=== PATIENT | male | born 2000 | race Caucasian/White ===

== ENCOUNTER → 2020-11-14 | Emergency (ER) | payer SELFPAY ==
[~2020-11-14] VITALS: Ht 177.8 cm; Wt 86.2 kg
[2020-11-14 20:54] VITALS: BP 153/80
--- NOTE | 2020-11-14 21:00 | NUR ---
Pt bibra and lapd c/o depression. Pt aaox4 breathing evenly and unlabored. Pt denies SI or HI. Pt attached to monitor and pox. Pt skin warm and dry. Pt given blanket and call light within reach.
--- NOTE | 2020-11-14 21:22 | NUR ---
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
== END | disposition home or self-care (01) ==
LOC: ER 20:49
DX: F32.9 Major depressive disorder, single episode, unspecified (principal)

== ENCOUNTER 2021-03-16 16:37 | Emergency (ER) | payer MEDICAID ==
[~2021-03-16] VITALS: Ht 170.2 cm; Wt 90.7 kg
[2021-03-16 17:02] VITALS: BP 156/76
--- NOTE | 2021-03-16 17:03 | NUR ---
[id number] HOME CALLED 911 C/O ANXIETY S/P ARGUMENT W/ MOTHER. DENIES SI/HI. IN ROOM AIR AIR AND DENIES SOB. RESPIRATION REGULAR AND UNLABORED. DENIES PAIN. WILL CONTINUE TO MONITOR THE PATIENT.
--- NOTE | 2021-03-16 17:22 | NUR ---
The patient is alert and oriented x4. Denies pain. In room air and denies SOB. Respiration regular and unlabored. Denies SI/HI. Patient discharged to home in stable condition. Written and verbal after care instructions given. Patient verbalizes understanding of instruction.
== END 2021-03-16 17:23 | disposition home or self-care (01) ==
LOC: ER 17:09
DX: F41.9 Anxiety disorder, unspecified (principal); F32.9 Major depressive disorder, single episode, unspecified

== ENCOUNTER 2022-08-14 14:19 | Emergency (ER) | payer MEDICAID ==
[~2022-08-14] VITALS: Ht 185.4 cm; Wt 111.1 kg
[2022-08-14 15:16] LABS: BASOPHILS # (AUTO) 0.1 K/uL (0.0-0.2); BASOPHILS % (AUTO) 0.8 % (0.0-2.0); EOSINOPHILS % (AUTO) 1.5 % (0.0-6.0); HEMATOCRIT 44 % (39-51); HEMOGLOBIN 14.6 g/dL (13.5-17.5); LYMPHOCYTES # (AUTO) 1.4 K/uL (0.8-4.8); LYMPHOCYTES % (AUTO) 16.6 % (20.0-44.0); MEAN CORPUSCULAR HGB CONC 33 g/dl (31.0-36.0); MEAN CORPUSCULAR VOLUME 85 fL (80-96); MONOCYTES # (AUTO) 0.7 K/uL (0.1-1.30); MONOCYTES % (AUTO) 8.7 % (2.0-12.0); NEUTROPHILS # (AUTO) 5.9 K/uL (1.8-8.9); NEUTROPHILS % (AUTO) 72.4 % (43.0-81.0); PLATELET COUNT (AUTO) 155 K/uL (150-450); RED BLOOD CELL COUNT(AUTO) 5.22 MIL/uL (4.5-6.0); WHITE BLOOD COUNT (AUTO) 8.2 K/uL (4.3-11.0)
[2022-08-14 15:24] LABS: CALCIUM, SERUM 9.5 mg/dL (8.5-10.1); CARBON DIOXIDE 27 mmol/L (21-32); CHLORIDE 104 mmol/L (98-107); CREATININE 0.9 mg/dL (0.6-1.3); GLUCOSE 88 mg/dL (74-106); POTASSIUM 3.7 mmol/L (3.5-5.1); SODIUM SERUM 139 mmol/L (136-145); UREA NITROGEN, BLOOD 12 mg/dL (7-18)
[2022-08-14 15:31] LABS: ALANINE AMINOTRANSFERASE 43 U/L (12-78); ALKALINE PHOSPHATASE 107 U/L (46-116); ASPARTATE AMINOTRANSFERASE 14 U/L (15-37); BILIRUBIN,DIRECT 0.2 mg/dL (0.0-0.2); BILIRUBIN,TOTAL 1.1 mg/dL (0.2-1.0); TOTAL PROTEIN, SERUM 7.9 g/dL (6.4-8.2)
[2022-08-14 15:49] LABS: ALCOHOL, BLOOD < 3 mg/dL (0-0)
[2022-08-14 16:21] LABS: BILIRUBIN,URINE 1+ (NEGATIVE); COLOR,URINE YELLOW (YELLOW); LEUKOCYTE ESTERASE ,URINE NEGATIVE (NEGATIVE); NITRITE, URINE NEGATIVE (NEGATIVE); PH,URINE 6.5 (5.0-8.0); PROTEIN,URINE TRACE mg/dl (NEGATIVE); UGLUCOSE NEGATIVE (NEGATIVE); UROBILINOGEN,URINE 0.2 EU/dL (0.2)
[2022-08-14 16:49] LABS: WBC,URINE NONE SEEN /HPF (0-3)
[2022-08-14 16:50] LABS: BACTERIA,URINE None seen /HPF (None Seen); RBC,URINE 0-2 /HPF (0-2); SQUAMOUS EPITHELIAL CELL,UR Rare /HPF (None Seen)
--- NOTE | 2022-08-14 20:43 | NUR ---
Denies SI / HI. Patient discharged to home in stable condition. Written and verbal after care instructions given. Patient verbalizes understanding of instruction.
[2022-08-14 20:46] VITALS: BP 118/70
== END 2022-08-14 20:47 | disposition home or self-care (01) ==
LOC: ER 14:20
DX: R45.851 Suicidal ideations (principal); F32.A Depression, unspecified; Z20.822 Contact with and (suspected) exposure to COVID-19
CPT/HCPCS: 99285; 85025; 80048; 80076; 81001; 36415; 87426; 80143; 80320; 80307; C9803; G0480

== ENCOUNTER 2023-05-26 19:24 | Emergency (ER) | payer MEDICAID, OTHER ==
[~2023-05-26] VITALS: Ht 175.3 cm; Wt 86.2 kg
[2023-05-26 19:51] VITALS: BP 124/77; TEMP 98.4; O2SAT 98
[2023-05-26] MEDS ORDERED: ZOLP5TAB2 PO (20:13)
== END 2023-05-26 20:19 | disposition home or self-care (01) ==
LOC: ER 19:30
DX: G47.00 Insomnia, unspecified (principal); F32.A Depression, unspecified